=== PATIENT | male | born 1935 | race Caucasian/White ===

== ENCOUNTER → 2021-07-28 15:00 | Outpatient (CLI) | payer MEDICARE, OTHER, SELFPAY ==
--- NOTE | 2021-07-28 | DI.CT_ITS ---
Exam(s) CT HEAD WO EXAM: CT HEAD WO CLINICAL HISTORY: HX OF CLOSED HEAD INJURY, Z87.820, ACUTE CONFUSION, R41.0. TECHNIQUE: Imaging Protocol: Axial computed tomography images with coronal and sagittal reformatted images were created and reviewed COMPARISON: No exams were available for comparison FINDINGS: Ventricles and Extra axial spaces: Moderate atrophy with compensatory ventricular dilatation. Hemorrhage: None. Cerebral parenchyma: White matter hypodensities consistent with small vessel changes. Midline shift: None. Brainstem/Cerebellum: Normal. Calvarium: Normal. Visualized Paranasal sinuses/Mastoids: Clear. Soft Tissues: Unremarkable. IMPRESSION: Age related changes. No acute intracranial process. RADIATION DOSE DELIVERED: 855.96mGy.cm Total DLP DATA REPOSITORY: All CT scans at this facility are submitted to the National Radiology Data Registry (NRDR) Dose Index Registry (DIR) with the [employer] (ACR). RADIATION OPTIMIZATION: All CT scans at this facility use at least one of these dose optimization te chniques: automated exposure control; mA and/or kV adjustment per patient size (includes targeted exa ms where dose is matched to clinical indication); or iterative reconstruction.
== END ==
PROVIDERS: Visit Provider Family Medicine
DX: R41.0 Disorientation, unspecified (principal); Z87.820 Personal history of traumatic brain injury
CPT/HCPCS: 70450

== ENCOUNTER 2021-07-28 21:07 | Outpatient (REF) | payer MEDICARE, OTHER, SELFPAY ==
[2021-07-28 20:15] LABS: Abs Immature Grans 0.05 10^3/uL (0.0-0.06); Absolute Basophil Count 0.03 10^3/uL (0.0-0.2); Absolute Eosinophil Count 0.16 10^3/uL (0.0-0.7); Absolute Lymphocyte Count 1.83 10^3/uL (1.2-3.4); Absolute Monocyte Count 0.59 10^3/uL (0.1-0.8); Absolute Neutrophil Count 4.61 10^3/uL (1.2-6.7); Basophils % 0.4; Eosinophils % 2.2; HCT 42.5 % (40.0-50.0); HGB 13.8 g/dL (13.5-17.5); Immature Grans % 0.7; Lymphocytes % 25.2; MCH 29.5 pg (27.0-33.0); MCHC 32.5 % (32.0-36.0); MCV 91 fL (80-95); Monocytes % 8.1; Neutrophils % 63.4; Platelet Count 146 10^3/uL (130-400); RBC 4.68 10^6/uL (4.36-5.78); RDW 14.7 % (11.8-14.1); RDW-SD 49.7 fL; WBC 7.27 10^3/uL (4.4-10.8)
[2021-07-28 20:45] LABS: ALT 30 U/L (16-63); AST 25 U/L (15-37); Albumin 3.7 g/dL (3.4-5.0); Alkaline Phosphatase 77 U/L (46-116); BUN 16 mg/dL (7-18); Bilirubin, Total 0.8 mg/dL (0.2-1.0); CREATININE 1.1 mg/dL (0.70-1.30); Calcium 8.8 mg/dL (8.5-10.1); Chloride 102 mmol/L (98-107); Glucose 105 mg/dL (74-106); Potassium 4.4 mmol/L (3.5-5.1); Sodium 137 mmol/L (136-145)
[2021-07-28 21:02] LABS: FREE T4 0.98 ng/dL (0.76-1.46)
== END 2021-07-28 21:08 | disposition home or self-care (01) ==
LOC: LBN 21:07
PROVIDERS: Visit Provider Family Medicine
DX: R41.0 Disorientation, unspecified (principal); Z87.820 Personal history of traumatic brain injury
CPT/HCPCS: 80053; 84439; 84443; 85025

== ENCOUNTER 2021-09-14 11:10 | Observation (INO) | payer MEDICARE, OTHER, SELFPAY ==
[2021-09-14] VITALS (72 sets, daily range): BP systolic 118–182; BP diastolic 54–137; PULSE 59–98; RESP 11–29; TEMP 36.6–38.3; O2SAT 93–99
--- NOTE | 2021-09-14 12:00 | DI.CT_ITS ---
Exam(s) CT HEAD WO EXAM: CT HEAD WO CLINICAL HISTORY: AMS. TECHNIQUE: Imaging Protocol: Axial computed tomography images with coronal and sagittal reformatted images were created and reviewed COMPARISON: CT CT HEAD WO from 07/28/2021 FINDINGS: There are no skull fractures. There is mucosal thickening in the bilateral maxillary sinuses now ev ident but not associated with fluid levels therein. Sphenoid sinuses and frontal sinuses are clear a s are the ethmoidal air cells and mastoid air cells. No fluid in the middle ear cavities. There is no evidence of intracranial hemorrhage, mass effect, or shift of midline structures. There are no extra-axial fluid collections. Lateral and 3rd ventricles are slightly prominent, perhaps sli ghtly out of proportion compared to the cortical sulci but unchanged from previous. There is mild bi lateral periventricular hypodensity consistent with chronic small vessel disease. No new territorial infarction evident. IMPRESSION: No acute intracranial findings on this noninfused CT scan of the brain. No significant change compared to 07/28/2021. Atrophy noted although the size of the lateral ventric les may be slightly out of proportion when compared to the size of the overlying cortical sulci. The refore, if there is clinical triad of dementia, ataxia, and incontinence than the possibility of norm al pressure hydrocephalus might be entertained. RADIATION DOSE DELIVERED: 888.46mGy.cm Total DLP DATA REPOSITORY: All CT scans at this facility are submitted to the National Radiology Data Registry (NRDR) Dose Index Registry (DIR) with the [employer] (ACR). RADIATION OPTIMIZATION: All CT scans at this facility use at least one of these dose optimization te chniques: automated exposure control; mA and/or kV adjustment per patient size (includes targeted exa ms where dose is matched to clinical indication); or iterative reconstruction.
--- NOTE | 2021-09-14 12:00 | DI.RAD_ITS ---
Exam(s) XR CHEST 2V PA LATERAL EXAM: XR CHEST 2V PA LATERAL CLINICAL HISTORY: fall/ams. TECHNIQUE: 2D digital imaging was performed. COMPARISON: No exams were available for comparison FINDINGS: 2 views: Heart size is normal. The mediastinum is not widened. Lungs are clear. No infiltrates nor pleural effusions. IMPRESSION: No acute pulmonary findings. DATA REPOSITORY: RADIATION DOSE DELIVERED:
--- NOTE | 2021-09-14 12:00 | RT.EKG_ITS ---
APPROVED REPORT Exam: Resting ECG Reason for Exam: ams Patient Location: E HR:68 bpm ECG Measurements Heart Rate 68 AXIS OK [id number] P [id number] QRSd 138 QRS -82 QT 491 T 67 QTc 522 Conclusion Junctional rhythm...absent P waves, slow V-rate Right bundle branch block...QRSd>120, terminal axis(90,270) Inferior infarct, old...Q >35mS, II III aVF no STEMI I have reviewed and interpreted ECG and agree with software generated interpretation.
[2021-09-14 12:15] LABS: Abs Immature Grans 0.05 10^3/uL (0.0-0.06); Absolute Basophil Count 0.03 10^3/uL (0.0-0.2); Absolute Eosinophil Count 0.18 10^3/uL (0.0-0.7); Absolute Lymphocyte Count 0.46 10^3/uL (1.2-3.4); Absolute Monocyte Count 0.73 10^3/uL (0.1-0.8); Absolute Neutrophil Count 5.66 10^3/uL (1.2-6.7); Basophils % 0.4; Eosinophils % 2.5; HCT 41.4 % (40.0-50.0); HGB 13.6 g/dL (13.5-17.5); Immature Grans % 0.7; Lymphocytes % 6.5; MCHC 32.9 % (32.0-36.0); MCV 91 fL (80-95); MPV 12.3 fL (8.0-11.0); Monocytes % 10.3; Neutrophils % 79.6; Platelet Count 105 10^3/uL (130-400); RBC 4.53 10^6/uL (4.36-5.78); RDW 15.1 % (11.8-14.1); RDW-SD 50.9 fL; WBC 7.11 10^3/uL (4.4-10.8)
[2021-09-14 12:23] LABS: Prothrombin Time 11.5 sec (9.3-11.0)
[2021-09-14 12:27] LABS: INR 1.1 (0.9-1.1)
[2021-09-14 12:39] LABS: ALT 125 U/L (16-63); AST 129 U/L (15-37); Albumin 3.6 g/dL (3.4-5.0); Alkaline Phosphatase 90 U/L (46-116); Anion Gap 6.5 mmol/L (3-11); BUN 24 mg/dL (7-18); Bilirubin, Total 1.3 mg/dL (0.2-1.0); CO2 28.5 mmol/L (21.0-32.0); CREATININE 1.2 mg/dL (0.70-1.30); Chloride 105 mmol/L (98-107); Creatine Kinase 632 U/L (39-308); Estimated GFR 57.54 (mL/min/1.73m2); Glucose 89 mg/dL (74-106); Sodium 140 mmol/L (136-145); TSH (W/Ref FT4) 2.56 uIU/mL (0.36-3.74); Total Protein 7.2 g/dL (6.4-8.2)
[2021-09-14 12:40] LABS: ETHANOL BLOOD < 3.0 mg/dL (<10)
[2021-09-14 12:42] LABS: Troponin I 120 ng/L (<or=60)
--- NOTE | 2021-09-14 13:29 | ED.GENADUL_ITS ---
Discharge Plan Disposition Patient Disposition: [facility] INPATIENT Condition: Stable Discharge Details Clinical Impression: Elevated troponin, Elevated CPK, COVID Admit Date/Time: 09/14/21 17:59 Admit Provider: Jean Pierre German Attending Provider: Jean Pierre German Primary Care Provider: Unknown,Unknown ED Provider: Janneth Solano Discharge Data Discharge Date/Time-TO BE ENTERED AT DEPARTURE: 09/14/21 20:26 Medical Decision Making <IVONNE Lezama - Last Filed: 09/14/21 15:59> This is an 86-year-old gentleman who is cared by his 2 Neighbors Jose and Janet, Janet being his POA, does not regular medical attention and is not on any medications presenting to the ER for unwitnessed fall last night, found on the ground this morning. Daya also reports that he likely has undiagnosed dementia, his overall mental status has been deteriorating for nearly a year but has decreased more rapidly as of late. They are in the process of moving him from his off the grid housing situation to an apartment in [place] and in the meantime while the apartment is being cleaned he is staying at a cottage on [facility]. Clinically he is pleasantly demented, no acute concerns or complaints, grossly neurologically intact. Differential is broad and includes intracranial process, infectious process, electrolyte abnormality, rhabdomyolysis, cardiac etiology, etc. Plan is to obtain IV access, give IV fluid, initiate cardiac work-up as well as a head CT Laboratory values reveal no evidence of leukocytosis, anemia, his platelet count is slightly low at 105. INR is 1.1, electrolytes unremarkable GFR of 57.54 with a creatinine of 1.2. Total bili was 1.3, abdomen is soft, nontender, no nausea or vomiting. CPK 632 troponin 120, TSH 256 Will provide full dose aspirin.. Head CT and chest x-ray unremarkable. Plan to discuss the case with our hospitalist team for admission. Case discussed with Dr. German who would like to review the case, recommends PT consultation in the meantime. COVID-positive. Patient has no respiratory symptoms, O2 sat 98% on room air. Delta troponin is now 130. I was contacted by PT who states they cannot evaluate the patient for quite some time but will when they are able. In the setting of a unwitnessed fall, elevated CPK, rising troponin, COVID positives, I believe the patient needs admission regardless of the PT consultation and have once again requested to speak with the hospitalist team. This documentation was generated using [employer] ([employer]) dictation system, please disregard any oddities of phrase or misspellings. Imaging Data Radiologic Study: Attestation: I personally reviewed and interpreted this imaging study as follows: Imaging: X-Ray Radiologist's impression: Exam(s) XR CHEST 2V PA LATERAL EXAM: XR CHEST 2V PA LATERAL CLINICAL HISTORY: fall/ams. TECHNIQUE: 2D digital imaging was performed. COMPARISON: No exams were available for comparison FINDINGS: 2 views: Heart size is normal. The mediastinum is not widened. Lungs are clear. No infiltrates nor pleural effusions. IMPRESSION: No acute pulmonary findings. Radiologic Study #2: Attestation: I personally reviewed and interpreted this imaging study as follows: Imaging: CT Scan Radiologist's impression: Exam(s) CT HEAD WO EXAM: CT HEAD WO CLINICAL HISTORY: AMS. TECHNIQUE: Imaging Protocol: Axial computed tomography images with coronal and sagittal reformatted images were created and reviewed COMPARISON: CT CT HEAD WO from 07/28/2021 FINDINGS: There are no skull fractures. There is mucosal thickening in the bilateral maxillary sinuses now evident but not associated with fluid levels therein. Sphenoid sinuses and frontal sinuses are clear as are the ethmoidal air cells and mastoid air cells. No fluid in the middle ear cavities. There is no evidence of intracranial hemorrhage, mass effect, or shift of midline structures. There are no extra-axial fluid collections. Lateral and 3rd ventricles are slightly prominent, perhaps slightly out of proportion compared to the cortical sulci but unchanged from previous. There is mild bilateral periventricular hypodensity consistent with chronic small vessel disease. No new territorial infarction evident. IMPRESSION: No acute intracranial findings on this noninfused CT scan of the brain. Lab Data Lab results reviewed: Yes I reviewed the patient's lab results. Labs: Laboratory Tests Range/Units 09/14/21 09/14/21 09/14/21 10:52 10:52 10:52 WBC (4.4-10.8) 10^3/uL 7.11 RBC (4.36-5.78) 10^6/uL 4.53 Hgb (13.5-17.5) g/dL 13.6 Hct (40.0-50.0) % 41.4 MCV (80-95) fL 91 MCH (27.0-33.0) pg 30.0 MCHC (32.0-36.0) % 32.9 RDW (11.8-14.1) % 15.1 H Plt Count (130-400) 10^3/uL 105 L MPV (8.0-11.0) fL 12.3 H Immature Gran % 0.7 Neutrophils % 79.6 Lymphocytes % 6.5 Monocytes % 10.3 Eosinophils % 2.5 Basophils % 0.4 Nucleated RBC % (0.0-0.3) % 0.0 Absolute Neutrophils (1.2-6.7) 10^3/uL 5.66 Absolute Lymphocytes (1.2-3.4) 10^3/uL 0.46 L Absolute Monocytes (0.1-0.8) 10^3/uL 0.73 Absolute Eosinophils (0.0-0.7) 10^3/uL 0.18 Absolute Basophils (0.0-0.2) 10^3/uL 0.03 PT (9.3-11.0) sec 11.5 H INR (0.9-1.1) 1.1 Sodium (136-145) mmol/L 140 Potassium (3.5-5.1) mmol/L 4.0 Chloride (98-107) mmol/L 105 Carbon Dioxide (21.0-32.0) mmol/L 28.5 Anion Gap (3-11) mmol/L 6.5 BUN (7-18) mg/dL 24 H Creatinine (0.70-1.30) mg/dL 1.2 Estimated GFR/1.73 m2 (mL/min/1.73m2) 57.54 Glucose (74-106) mg/dL 89 Calcium (8.5-10.1) mg/dL 9.0 Magnesium (1.8-2.4) mg/dL 2.0 Total Bilirubin (0.2-1.0) mg/dL 1.3 H AST (15-37) U/L 129 H ALT (16-63) U/L 125 H Alkaline Phosphatase (46-116) U/L 90 Creatine Kinase (39-308) U/L 632 H Troponin I (<or=60) ng/L 120 H* Total Protein (6.4-8.2) g/dL 7.2 Albumin (3.4-5.0) g/dL 3.6 TSH (0.36-3.74) uIU/mL 2.56 Urine Color (Yellow) Urine Clarity (Clear) Urine pH (5-8) Ur Specific [place] (1.005-1.025) Urine Protein (Negative) mg/dL Urine Ketones (Negative) mg/dL Urine Blood (Negative) Urine Nitrite (Negative) Urine Bilirubin (Negative) Urine Urobilinogen (Up TO 0.2) EU/dL Ur Leukocyte Esterase (Negative) Urine RBC (0-2) HPF Urine WBC (0-5) HPF Ur Epithelial Cells (Negative) HPF Urine Crystals (Negative) HPF Urine Bacteria (Negative) HPF Urine Casts (Negative) LPF Urine Mucus (Negative) Ur Culture Indicated? Urine Glucose (Negative) mg/dL Ethyl Alcohol (<10) mg/dL < 3.0 COVID-19 Source SARS-CoV-2 (PCR) (Negative) Range/Units 09/14/21 09/14/21 09/14/21 14:13 14:24 15:00 WBC (4.4-10.8) 10^3/uL RBC (4.36-5.78) 10^6/uL Hgb (13.5-17.5) g/dL Hct (40.0-50.0) % MCV (80-95) fL MCH (27.0-33.0) pg MCHC (32.0-36.0) % RDW (11.8-14.1) % Plt Count (130-400) 10^3/uL MPV (8.0-11.0) fL Immature Gran % Neutrophils % Lymphocytes % Monocytes % Eosinophils % Basophils % Nucleated RBC % (0.0-0.3) % Absolute Neutrophils (1.2-6.7) 10^3/uL Absolute Lymphocytes (1.2-3.4) 10^3/uL Absolute Monocytes (0.1-0.8) 10^3/uL Absolute Eosinophils (0.0-0.7) 10^3/uL Absolute Basophils (0.0-0.2) 10^3/uL PT (9.3-11.0) sec INR (0.9-1.1) Sodium (136-145) mmol/L Potassium (3.5-5.1) mmol/L Chloride (98-107) mmol/L Carbon Dioxide (21.0-32.0) mmol/L Anion Gap (3-11) mmol/L BUN (7-18) mg/dL Creatinine (0.70-1.30) mg/dL Estimated GFR/1.73 m2 (mL/min/1.73m2) Glucose (74-106) mg/dL Calcium (8.5-10.1) mg/dL Magnesium (1.8-2.4) mg/dL Total Bilirubin (0.2-1.0) mg/dL AST (15-37) U/L ALT (16-63) U/L Alkaline Phosphatase (46-116) U/L Creatine Kinase (39-308) U/L Troponin I (<or=60) ng/L 130 H* Total Protein (6.4-8.2) g/dL Albumin (3.4-5.0) g/dL TSH (0.36-3.74) uIU/mL Urine Color (Yellow) Yellow Urine Clarity (Clear) Clear Urine pH (5-8) 6.0 Ur Specific [place] (1.005-1.025) >= 1.030 H Urine Protein (Negative) mg/dL 30 H Urine Ketones (Negative) mg/dL Trace H Urine Blood (Negative) Small H Urine Nitrite (Negative) Negative Urine Bilirubin (Negative) Negative Urine Urobilinogen (Up TO 0.2) EU/dL 1.0 H Ur Leukocyte Esterase (Negative) Negative Urine RBC (0-2) HPF 3-5 H Urine WBC (0-5) HPF Negative Ur Epithelial Cells (Negative) HPF Rare Urine Crystals (Negative) HPF Negative Urine Bacteria (Negative) HPF Negative Urine Casts (Negative) LPF 0-2 Hyaline Urine Mucus (Negative) Trace Ur Culture Indicated? No Urine Glucose (Negative) mg/dL Negative Ethyl Alcohol (<10) mg/dL COVID-19 Source Nasal/Nares SARS-CoV-2 (PCR) (Negative) POSITIVE A* ECG Data Attestation: I personally reviewed and interpreted this ECG (s) as follows: Interpretation: Junctional rhythm, ventricular rate of 68, no STEMI. <Janneth Solano NP - Last Filed: 09/14/21 23:08> This is an 86-year-old gentleman who is cared by his 2 Neighbors Jose and Janet, Janet being his POA, does not regular medical attention and is not on any medications presenting to the ER for unwitnessed fall last night, found on the ground this morning. Daya also reports that he likely has undiagnosed dementia, his overall mental status has been deteriorating for nearly a year but has decreased more rapidly as of late. They are in the process of moving him from his off the grid housing situation to an apartment in [place] and in the meantime while the apartment is being cleaned he is staying at a cottage on [facility]. Clinically he is pleasantly demented, no acute concerns or complaints, grossly neurologically intact. Differential is broad and includes intracranial process, infectious process, electrolyte abnormality, rhabdomyolysis, cardiac etiology, etc. Plan is to obtain IV access, give IV fluid, initiate cardiac work-up as well as a head CT Laboratory values reveal no evidence of leukocytosis, anemia, his platelet count is slightly low at 105. INR is 1.1, electrolytes unremarkable GFR of 57.54 with a creatinine of 1.2. Total bili was 1.3, abdomen is soft, nontender, no nausea or vomiting. CPK 632 troponin 120, TSH 256 Will provide full dose aspirin.. Head CT and chest x-ray unremarkable. Plan to discuss the case with our hospitalist team for admission. Case discussed with Dr. German who would like to review the case, recommends PT consultation in the meantime. COVID-positive. Patient has no respiratory symptoms, O2 sat 98% on room air. Delta troponin is now 130. I was contacted by PT who states they cannot evaluate the patient for quite some time but will when they are able. In the setting of a unwitnessed fall, elevated CPK, rising., COVID positives, I believe the patient needs admission regardless of the PT consultation and have once again requested to speak with the hospitalist team. This documentation was generated using InsideMaps[employer] system, please disregard any oddities of phrase or misspellings. 1605: SJ: Care assumed from provider (see PA) Please see their initial HPI, PE, and documentation. Discussed patient details and case and pending workup and disposition. Patient is hemodynamically stable. At the time of signout pending possible admission for COVID-positive, and elevated troponin. Spoke once again with Dr. Monique regarding positive COVID test and increasing troponin results. He will reach physical therapy evaluation. He is also requesting care management to be involved. 1613: Spoke with Alley with healthcare specialist she will see what patient qualifies for in ways of home health if possible. 1617: Spoke with Hospitalist team again, they agree to accept patient for admission for Observation. 1718: PT with Moises Casas here for. Apparently there is some confusion whether patient has been accepted for admission per Alley with care management patient has not been accepted for admission. Hospitalist paged by myself. [id number]: PT statesthat patient is not safe to be discharged ,unable to perform activities daily living. He is unable to get in and out of bed by himself. 1747: Spoke with Hospitalist once more who does agree again to keep patient for admission. staff readiness officer spoke with person who brought him in, Janet Grayson who is his DPOA. There is also a report of bed bug infestation at the place of his residence. HPI <IVONNE Lezama - Last Filed: 09/14/21 15:59> General Mode of arrival: ambulatory . Date/Time Provider Initiated Documentation: 09/14/21 11:49 . Limitations to Documentation: no limitations . Information obtained by: patient . HPI Narrative: This is an 86-year-old gentleman who presents with Daya a herb doctor with permission from Janet his POA, does not seek regular medical attention, presenting to the ER today for a fall that occurred sometime last night, found on the ground this morning unable to get up on his own, and acute on chronic unofficially diagnosed dementia. Patient currently has no acute concerns or complaints, tells me he feels well. He appears pleasantly demented. Daya tells me that she and Janet are in the process of moving him from his office group housing to an apartment in [facility] but that apartment is currently being cleaned for temporarily he is staying in the [facility] [address]. Daya saw him last night and [place] [facility] [place] he was unable to come to the door, the door was unlocked by the telegraph office manager and he was found on the ground, unknown how long she was on the ground for. He does not recall falling and denies any injury. Patient has a sibling Daya believes in [place], his is in a memory facility in [facility] for [place] but both Janet and Daya care for him locally. I was able to speak with Janet and she confirms the patient is a DNR, DNI Related Data Home Medications Medication Instructions Recorded Confirmed Unknown [No Known Home Meds] 09/14/21 09/14/21 Allergies Allergy/AdvReac Type Severity Reaction Status Date / Time No Known Allergies Allergy Unverified 09/14/21 17:42 General Stated Complaint: AMS/LOC JENNIFER: 2 Review of Systems <IVONNE Lezama - Last Filed: 09/14/21 15:59> Narrative: Limited secondary to dementia Constitutional Constitutional: Denies fever(s) and Denies headache(s) Eyes Eyes: Denies change in vision ENT Ears, Nose, Mouth, and Throat: Denies headache(s) and Denies neck pain Cardiovascular Cardiovascular: Denies chest pain and Denies dyspnea Respiratory Respiratory: Denies cough and Denies dyspnea Gastrointestinal Gastrointestinal: Denies abdominal pain, Denies nausea and Denies vomiting Musculoskeletal Musculoskeletal: Denies neck pain Integumentary/Breasts Skin/Breast: Denies rash Neurologic Neurologic: Denies headache(s) Hematologic/Lymphatic Hematologic/Lymphatic: Denies easy bleeding and Denies easy bruising PFSH <IVONNE Lezama - Last Filed: 09/14/21 15:59> All Active Problems (Updated 09/14/21 @ 15:57 by IVONNE Lezama) Elevated troponin (Acute) Elevated CPK (Acute) COVID (Acute) Social History Smoking/Tobacco Use Status: Never Smoking risk assessment performed?: Yes Alcohol Intake: current Alcohol Intake frequency: 0-2 drinks per day Alcohol type: hard liquor Substance use type: does not use Details: Pt reports he drinks 1 glass of Gin a day Do you feel safe at home: Yes Do you feel safe in your relationship?: Yes Exam <IVONNE Lezama - Last Filed: 09/14/21 15:59> Const General: cooperative, healthy appearing, comfortable and no acute distress Orientation: alert, awake, oriented to person and oriented to place [facility] Head: normal to inspection, normocephalic and atraumatic Face and sinus: normal facial exam Mouth: moist mucous membranes Eyes General: appearance normal, both eyes and all related structures Conjunctivae: conjunctivae normal Neck Neck: normal visual inspection, full ROM, trachea midline, supple and nontender Resp Effort & Inspection: normal respiratory effort and able to speak in complete sentences Auscultation: clear to auscultation bilaterally Cardio Rate: regular rate Rhythm: regular rhythm GI Palpation: soft, not firm, no guarding, no pulsatile masses and nontender Auscultation: normal bowel sounds Back/Spine/Pelvis Back: No back tenderness Skin General skin exam: no rashes or lesions noted Neuro General: patient alert, patient awake, moves all extremities and no focal motor deficits Cognition: normal cognition Speech: speech normal Motor: muscle tone normal throughout Sensory Exam: no sensory deficits noted Extrem General: normal to inspection, full ROM, capillary refill normal, no pedal edema and no calf tenderness Psych Appearance: grossly normal Mental Status: mental status grossly normal Course <IVONNE Lezama - Last Filed: 09/14/21 15:59> Vital Signs Vital signs: Vital Signs Temperature 36.6 C 09/14/21 11:35 Pulse 70 09/14/21 11:35 Respiratory Rate 23 09/14/21 11:35 Blood Pressure 164/86 H 09/14/21 11:35 Pulse Oximetry 99 09/14/21 11:35 Temperature 36.6 C 09/14/21 11:35 Temperature Source Temporal Artery Scan 09/14/21 11:35 Pulse 69 09/14/21 12:46 Pulse 71 09/14/21 12:46 Respiratory Rate 22 09/14/21 12:46 Respiratory Effort Non-Labored 09/14/21 11:57 Respiratory Depth Normal 09/14/21 11:57 Respiratory Pattern Normal 09/14/21 11:57 Blood Pressure 153/92 H 09/14/21 12:46 Blood Pressure Mean 107 09/14/21 12:46 Blood Pressure Position Sitting 09/14/21 11:35 Pulse Oximetry 97 09/14/21 12:46 Oxygen Delivery Method Room Air 09/14/21 11:35 Oxygen Flow Rate 0 09/14/21 11:35 Pain Level 0 09/14/21 11:35 Lab/Test Results Lab/Test Results: Laboratory Tests Range/Units 09/14/21 09/14/21 09/14/21 10:52 10:52 10:52 WBC (4.4-10.8) 10^3/uL 7.11 RBC (4.36-5.78) 10^6/uL 4.53 Hgb (13.5-17.5) g/dL 13.6 Hct (40.0-50.0) % 41.4 MCV (80-95) fL 91 MCH (27.0-33.0) pg 30.0 MCHC (32.0-36.0) % 32.9 RDW (11.8-14.1) % 15.1 H Plt Count (130-400) 10^3/uL 105 L MPV (8.0-11.0) fL 12.3 H Immature Gran % 0.7 Neutrophils % 79.6 Lymphocytes % 6.5 Monocytes % 10.3 Eosinophils % 2.5 Basophils % 0.4 Nucleated RBC % (0.0-0.3) % 0.0 Absolute Neutrophils (1.2-6.7) 10^3/uL 5.66 Absolute Lymphocytes (1.2-3.4) 10^3/uL 0.46 L Absolute Monocytes (0.1-0.8) 10^3/uL 0.73 Absolute Eosinophils (0.0-0.7) 10^3/uL 0.18 Absolute Basophils (0.0-0.2) 10^3/uL 0.03 PT (9.3-11.0) sec 11.5 H INR (0.9-1.1) 1.1 Sodium (136-145) mmol/L 140 Potassium (3.5-5.1) mmol/L 4.0 Chloride (98-107) mmol/L 105 Carbon Dioxide (21.0-32.0) mmol/L 28.5 Anion Gap (3-11) mmol/L 6.5 BUN (7-18) mg/dL 24 H Creatinine (0.70-1.30) mg/dL 1.2 Estimated GFR/1.73 m2 (mL/min/1.73m2) 57.54 Glucose (74-106) mg/dL 89 Calcium (8.5-10.1) mg/dL 9.0 Magnesium (1.8-2.4) mg/dL 2.0 Total Bilirubin (0.2-1.0) mg/dL 1.3 H AST (15-37) U/L 129 H ALT (16-63) U/L 125 H Alkaline Phosphatase (46-116) U/L 90 Creatine Kinase (39-308) U/L 632 H Troponin I (<or=60) ng/L 120 H* Total Protein (6.4-8.2) g/dL 7.2 Albumin (3.4-5.0) g/dL 3.6 TSH (0.36-3.74) uIU/mL 2.56 Ethyl Alcohol (<10) mg/dL < 3.0 Sign Out <IVONNE Lezama - Last Filed: 09/14/21 15:59> Sign Out Data: Sign Out Comment: Pending admission for unwitnessed fall, unable to get up off of the ground, elevated CPK, elevated troponin, COVID-positive. Also awaiting PT consultation I did confirm with the patient's POA that he is in fact a DNR, DNI Last updated by Cedrick Díaz PA at 09/14/21 15:58 PAWSS <IVONNE Lezama - Last Filed: 09/14/21 15:59> Have you Been Recently Intoxicated or Drunk Within the Last 30 days?: No Have you Ever Experienced Previous Episodes of Alcohol Withdrawal?: No Have you ever Experienced Withdrawal Seizures?: No Have you ever Experienced Delirium Tremens(DT)s?: No Have you ever undergone Alcohol Rehabilitation Treatment (i.e, inpt ot outpatient treatment programs)?: No Have you ever Experienced Blackouts?: No Have you ever Combined Alcohol with other Downers within the last 90 days?: No Have you ever Combined Alcohol with any other Substance of Abuse during the last 90 days?: No Positive Blood Alcohol level on Presentation? [PCS.BAL]: No Evidence of Increased Autonomic Activity (i.e. HR>120, tremor, sweating, agitation, nausea)?: No Result: 0 <Janneth Solano NP - Last Filed: 09/14/21 23:08> Result: 0
[2021-09-14 14:28] LABS: Source Nasal/Nares
[2021-09-14] MEDS: Normal Saline 1,000 ML 1000 ML IV (14:34)
[2021-09-14 14:41] LABS: Bilirubin Negative (Negative); Blood Small (Negative); Clarity Clear (Clear); Glucose Negative (Negative); Ketones Trace mg/dL (Negative); Leukocyte Esterase Negative (Negative); Nitrite Negative (Negative); Specific Gravity >= 1.030 (1.005-1.025)
[2021-09-14 14:49] LABS: Bacteria Negative HPF (Negative); C & S Indicated? No; Casts 0-2 Hyaline LPF (Negative); Crystals Negative HPF (Negative); Epithelial Cells Rare HPF (Negative); Mucus Trace (Negative); WBC Negative HPF (0-5)
[2021-09-14 15:20] LABS: COVID-19 PCR POSITIVE (Negative)
[2021-09-14 15:25] LABS: Troponin I 130 ng/L (<or=60)
--- NOTE | 2021-09-14 17:55 | PT.INTREAT ---
PT Notes Visit Reasons: [facility] Emergency room physical Therapy Evaluation Date: 09/14/2021 Referring Doctor: Cedrick Díaz PT Orders: PT CONSULT: Determine functional status Precautions: Fall risk Patient Profile/Admitting Diagnosis: 86-year-old male who was admitted to the ER today after being found on the ground by neighbors. PMHX: Dementia Social History/Home Situation: Currently living alone in a cottage on [address] [facility] and waiting to occupy an apartment in [place]. Couple of neighbors assist him with his home situation. Current Functional Limitations: Requires assistance with bed mobility activities and standby supervision with ambulation Equipment Owned/DME: Difficult to assess due to patient being a poor historian. Subjective: No complaints of pain offered Objective: General Observation: I enter the examination room and the patient is floundering on the plinth. Mental Status: He is disoriented to person, place and time ([place], and unsure of the year, thinks he is in [place], and Gauri is president) he follows simple commands appropriately Pain: No complaints of pain ROM: Has functional range of motion of his articular structures without pain on movement Strength: Is full motor control throughout strength generally rated 4/5 Neuro: Intact Bed Mobility/Transfers: Requires moderate to maximal assist with assuming the supine to sitting position, and mild to moderate assistance with assuming sitting to supine. He is able to stand with minimal contact assistance. Gait: He ambulated with an FW W with contact guarding but a stable gait. He would frequently lift and carry the walker. His unilateral standing balance was less than 3 seconds and he complained of fear of falling Balance: Static Sitting: Stable Dynamic Sitting: Requires standby supervision Static Standing: Stable but required standby supervision Dynamic Standing: Fair with unilateral standing balance of less than 3 seconds Special Tests: Informed Consent/Education: Patient instructed in purpose of PT consult and plan of care. Assessment: Patient is a 86year old male referred to physical therapy services with the diagnosis of recent fall and dementia. Patient presents with clinical signs and symptoms consistent with diagnosis, as demonstrated by the following impairment level findings: . Disoriented x3 requiring assistance with all bed mobility activities, and supervision with ambulation requiring a walker to minimize fall risk. Is unsafe for him to return to his current living situation unsupervised Patient is assessed as a Moderate [id number] complexity based on the following: History: See comorbidities and social history Examination: See above for functional limitations impairments Presentation: Evolving Decision Making: Moderate complexity based on his clinical findings Goals: Plan of Care/Treatment Plan: Due to his functional status and dementia/disorientation, along with living alone, patient needs to be in a supervised, safer environment. DISCHARGE RECOMMENDATIONS: SNF for continued rehabilitation TREATMENT CODE/TIME: 06343 Disclaimer: This note was created using [employer], [employer] voice recognition software. It was reviewed for major content. However, there may be multiple small discrepancies and errors due to the voice recognition aspects of the software.
[2021-09-14] MEDS: Aspirin 325 MG TAB PO (18:10)
--- NOTE | 2021-09-14 18:25 | W.PM.HP.N ---
Date of service: 09/14/21 Time of Service: 18:25 Assessment and Plan Assessment and plan (1) COVID: Status: Acute Assessment and plan: Incidental finding w/o respiratory symptoms. Likely a cause of weakness. Precautions. (2) Elevated CPK: Status: Acute Assessment and plan: Found on ground; unknown amount of time, though caregiver saw him the evening before admission and he was in his normal state of health. Repeat and insure adequate hydration. (3) Elevated troponin: Status: Acute Assessment and plan: Mild elevation. No EKG concerns. Trend (4) Discharge planning issues: Status: Acute Assessment and plan: Care management to d/w DPOA and caregiver regarding disposition. History of Present Illness History of Present Illness Chief Complaint: Weakness Narrative: This is an 86 yo male with no known PMH; does not routinely seek medical care. He came to the ED after a caregiver that checks in on him found him on the ground after he did not answer the door. He lives alone in a cottage on [address] [facility]; the surplus property disposal agent let the caregiver, Daya in. He could not recall why he was on the ground but denied any pain or injury. He has dementia and is not a good historian. He has a DNR/DNI code status. W/U in the ED found him to be Covid positive. He was not hypoxic or showing any signs of respiratory compromise. WBC count normal. Afebrile. Troponin 120 > 130. No EKG findings concerning for ACS. No C/O chest pain. CPK 632. CXR w/o acute findings. CT head w/o acute findings. He was given a 1L NS bolus. PT attempted to walk him but was unable to get him up off the gurney. Review of Systems Unobtainable due to mental status PFSH All Active Problems (Updated 09/15/21 @ 09:55 by Jean Pierre German MD) Discharge planning issues (Acute) Elevated troponin (Acute) Elevated CPK (Acute) COVID (Acute) Social History Smoking/Tobacco Use Status: Never Smoking risk assessment performed?: Yes Alcohol Intake: current Alcohol Intake frequency: 0-2 drinks per day Alcohol type: hard liquor Substance use type: does not use Details: Pt reports he drinks 1 glass of Gin a day Do you feel safe at home: Yes Do you feel safe in your relationship?: Yes Meds Allergies and Home Medications Allergies Allergy/AdvReac Type Severity Reaction Status Date / Time No Known Allergies Allergy Unverified 09/14/21 17:42 Home Medications Medication Instructions Recorded Confirmed Type Unknown [No Known Home Meds] 09/14/21 09/14/21 History Exam Narrative Exam Narrative: Lying supine. on gurney. Const General: cooperative, no acute distress and frail appearing Nutritional Appearance: thin Orientation: awake Eyes General: appearance normal, both eyes and all related structures Sclera: sclerae normal Resp Effort & Inspection: normal respiratory effort Auscultation: clear to auscultation bilaterally Cardio Rate: regular rate Rhythm: regular rhythm Heart Sounds: S1 normal and S2 normal GI Inspection: normal to inspection Palpation: soft and nontender Skin General skin exam: other (scattered red, crusty lesions of scalp. ) Neuro General: no focal motor deficits Cranial Nerves: facial strength normal Extrem General: no pedal edema and no calf tenderness Psych Speech and Movement: speech clear Affect: normal affect Results Labs Result diagrams: 09/14/21 10:52 09/15/21 05:23 Labs: Laboratory Results - last 24 hr 09/14/21 09/14/21 09/14/21 10:52 10:52 10:52 WBC 7.11 RBC 4.53 Hgb 13.6 Hct 41.4 MCV 91 MCH 30.0 MCHC 32.9 RDW 15.1 H Plt Count 105 L MPV 12.3 H Immature Gran % 0.7 Neutrophils % 79.6 Lymphocytes % 6.5 Monocytes % 10.3 Eosinophils % 2.5 Basophils % 0.4 Nucleated RBC % 0.0 Absolute Neutrophils 5.66 Absolute Lymphocytes 0.46 L Absolute Monocytes 0.73 Absolute Eosinophils 0.18 Absolute Basophils 0.03 PT 11.5 H INR 1.1 Sodium 140 Potassium 4.0 Chloride 105 Carbon Dioxide 28.5 Anion Gap 6.5 BUN 24 H Creatinine 1.2 Estimated GFR/1.73 m2 57.54 Glucose 89 Calcium 9.0 Magnesium 2.0 Total Bilirubin 1.3 H AST 129 H ALT 125 H Alkaline Phosphatase 90 Creatine Kinase 632 H Troponin I 120 H* Total Protein 7.2 Albumin 3.6 TSH 2.56 Urine Color Urine Clarity Urine pH Ur Specific [place] Urine Protein Urine Ketones Urine Blood Urine Nitrite Urine Bilirubin Urine Urobilinogen Ur Leukocyte Esterase Urine RBC Urine WBC Ur Epithelial Cells Urine Crystals Urine Bacteria Urine Casts Urine Mucus Ur Culture Indicated? Urine Glucose Ethyl Alcohol < 3.0 COVID-19 Source SARS-CoV-2 (PCR) 09/14/21 09/14/21 09/14/21 14:13 14:24 15:00 WBC RBC Hgb Hct MCV MCH MCHC RDW Plt Count MPV Immature Gran % Neutrophils % Lymphocytes % Monocytes % Eosinophils % Basophils % Nucleated RBC % Absolute Neutrophils Absolute Lymphocytes Absolute Monocytes Absolute Eosinophils Absolute Basophils PT INR Sodium Potassium Chloride Carbon Dioxide Anion Gap BUN Creatinine Estimated GFR/1.73 m2 Glucose Calcium Magnesium Total Bilirubin AST ALT Alkaline Phosphatase Creatine Kinase Troponin I 130 H* Total Protein Albumin TSH Urine Color Yellow Urine Clarity Clear Urine pH 6.0 Ur Specific [place] >= 1.030 H Urine Protein 30 H Urine Ketones Trace H Urine Blood Small H Urine Nitrite Negative Urine Bilirubin Negative Urine Urobilinogen 1.0 H Ur Leukocyte Esterase Negative Urine RBC 3-5 H Urine WBC Negative Ur Epithelial Cells Rare Urine Crystals Negative Urine Bacteria Negative Urine Casts 0-2 Hyaline Urine Mucus Trace Ur Culture Indicated? No Urine Glucose Negative Ethyl Alcohol COVID-19 Source Nasal/Nares SARS-CoV-2 (PCR) POSITIVE A* Last Vital Signs Temp 36.6 C 09/14/21 11:35 Pulse 84 09/14/21 16:17 Resp 29 H 09/14/21 17:50 BP 132/111 H 09/14/21 16:17 Pulse Ox 98 09/14/21 15:10 PAWSS Have you Been Recently Intoxicated or Drunk Within the Last 30 days?: No Have you Ever Experienced Previous Episodes of Alcohol Withdrawal?: No Have you ever Experienced Withdrawal Seizures?: No Have you ever Experienced Delirium Tremens(DT)s?: No Have you ever undergone Alcohol Rehabilitation Treatment (i.e, inpt ot outpatient treatment programs)?: No Have you ever Experienced Blackouts?: No Have you ever Combined Alcohol with other Downers within the last 90 days?: No Have you ever Combined Alcohol with any other Substance of Abuse during the last 90 days?: No Positive Blood Alcohol level on Presentation? [PCS.BAL]: No Evidence of Increased Autonomic Activity (i.e. HR>120, tremor, sweating, agitation, nausea)?: No Result: 0
[2021-09-14] MEDS: Acetaminophen 325 MG TAB 650 MG PO (21:12)
[2021-09-14] MEDS: Enoxaparin 40 MG/0.4 ML SYR SC (21:12)
[2021-09-14 22:29] LABS: Troponin I 149 ng/L (<or=60)
[2021-09-15 06:22] LABS: ALT 179 U/L (16-63); AST 199 U/L (15-37); Albumin 3.2 g/dL (3.4-5.0); Alkaline Phosphatase 78 U/L (46-116); Anion Gap 7.2 mmol/L (3-11); BUN 23 mg/dL (7-18); Bilirubin, Total 1.3 mg/dL (0.2-1.0); CO2 26.8 mmol/L (21.0-32.0); Calcium 8.4 mg/dL (8.5-10.1); Chloride 104 mmol/L (98-107); Creatine Kinase 901 U/L (39-308); Glucose 67 mg/dL (74-106); Potassium 4.1 mmol/L (3.5-5.1); Sodium 138 mmol/L (136-145); Total Protein 6.7 g/dL (6.4-8.2)
[2021-09-15 08:00] VITALS: PULSE 84; TEMP 37.8
--- NOTE | 2021-09-15 09:14 | PDOC.CMIN ---
- If Service Date Differs Date of service: 09/15/21 Time of Service: 09:14 Care Management Initial Assess REASON FOR HOSPITALIZATION:: generalized weakness PAST MEDICAL HISTORY/PAST SURGICAL HISTORY:: All Active Problems. Elevated troponin (Acute). Elevated CPK (Acute). COVID (Acute) PREVIOUS FUNCTIONAL STATUS/SOCIAL/FAMILY SUPPORTS:: Geovanny lives alone in [place]. He has supportive friends/neighbors, including Janet, his DPOA. He has limited medical history, due to the lack of a primary care provider. CURRENT FUNCTIONAL STATUS:: Geovanny is currently isolated in the ICU due to his Covid diagnosis, therefore CM did not meet with him. Per report, Johana, Palliative Care, discussed his care with his DPOA, Janet, who stated that the plan would be for him to return home, into her care, and she is assisting him with obtaining a hospital bed and checks on him frequently. CM attempted to call Janet, and was not able to leave a voicemail. PT is recommending SNF, although Geovanny has not had a three night stay, therefore [facility] will not cover short term rehab. Per report, Geovanny and Janet are both disagreeable to SNF. CM sent a referral to [facility] for options counseling and assisted planning. CM will continue to follow. ADVANCE DIRECTIVES:: None on file. Has patient been provided with info about the portal/API?: No Did the patient sign up for the portal?: No CODE STATUS:: DNR/DNI (per DPOA) INSURANCE COVERAGE / FINANCIAL ISSUES:: MCR/ UMR CURRENT HOME/COMMUNITY SERVICES/EQUIPMENT:: No current services in the community. PRIMARY CARE PHYSICIAN:: None POTENTIAL DISCHARGE NEEDS:: Evaluations for further needs, follow up appointments. PATIENT/FAMILY EDUCATION NEEDS:: Review discharge instructions and limitations, discussion of self care needs including ask me three and goals of care. ANTICIPATED BARRIERS TO DISCHARGE:: Geovanny lives alone with dementia. TRANSPORTATION:: Via private vehicle by a friend. PLAN:: Anticipate Geovanny will return home when medically cleared. He will be transported via private vehicle by a friend. He will follow up with the online services manager PCP, and his discharge plan of care. CM will continue to follow.
--- NOTE | 2021-09-15 09:55 | PT.INIE ---
Date of service: 09/15/21 Time of Service: 09:55 PT Notes Visit Reasons: Generalized Weakness Physical Therapy Inpatient Initial Evaluation Date: 09/15/2021 Referring Doctor: Jean Pierre German MD PT Orders: PT CONSULT: Eval/Treat Precautions: Fall. Standard. Activity as tolerated. Patient Profile/Admitting Diagnosis: Patient is an 86-year-old male patient with pre-existing dementia who presented to the ED on 09/14/2021 due to having found on the ground by caregiver from an unwitnessed fall the previous day. Patient was evaluated by PT at the ED on 09/14/2021 and recommended placement in a SNF due to concerns for safety and high fall risk. Patient is diagnosed with COVID-19 infection, elevated CPK, and elevated troponin. PMHX: All Active Problems?(Updated 09/15/21 @ 09:55 by Jean Pierre German MD) Discharge planning issues (Acute) Elevated troponin (Acute) Elevated CPK (Acute) COVID (Acute) Social History/Home Situation: Unreliable historian. Per CM and ED notes, patient is temporarily in a lodge in [facility] scheduled to move into an apartment in [place]. is in a facility due to dementia. Equipment Owned/DME: Unknown at this time Subjective: Agreeable to being moved out of bed for this evaluation. Does not feel safe standing alone and wanted to be supported when he got up. felt weak and shaky. Requested to go back to bed so he could again rest. Objective: General Observation: Supine in bed. Mental Status: Disoriented as to person, place, time, and purpose. Able to follow single step commands with moderate to maximal cueing. Pain: None reported ROM: Right Upper Extremity: Shoulder Flexion allows about 80 degrees only. Shoulder abduction up to 70 degrees. Elbow flexion WFL. Wrist flexion WFL. Functional opening and closing of hand WFL. Left Upper Extremity: Shoulder Flexion allows about 90 degrees only. Shoulder abduction up to 80 degrees. Elbow flexion WFL. Wrist flexion WFL. Functional opening and closing of hand WFL. Right Lower Extremity: Hip flexion lacks the last 25% or AROM while seated at EOB. Hip abduction WFL. Knee flexion WFL. Ankle dorsiflexion to neutral only. Ankle plantarflexion WFL. Left Lower Extremity: Hip flexion lacks the last 25% or AROM while seated at EOB. Hip abduction WFL. Knee flexion WFL. Ankle dorsiflexion to neutral only. Ankle plantarflexion WFL. Strength: Right Upper Extremity: Shoulder flexors 3-/5. Shoulder abductors 3-/5. Elbow flexors 4-/5. Elbow extensors 4-/5. Television Actor strong. Left Upper Extremity: Shoulder flexors 3-/5. Shoulder abductors 3-/5. Elbow flexors 4-/5. Elbow extensors 4-/5. Television Actor strong. Right Lower Extremity: Hip flexors 3-/5. Hip abductors 3-/5. Knee flexors 4-/5. Knee extensors 4-/5. Ankle dorsiflexors 3-/5. Ankle plantarflexors 4-/5. Left Lower Extremity: Hip flexors 3-/5. Hip abductors 3-/5. Knee flexors 4-/5. Knee extensors 4-/5. Ankle dorsiflexors 3-/5. Ankle plantarflexors 4-/5. Bed Mobility/Transfers: Rolling minimal assist Supine to sit minimal assist to B LE Sit to supine minimal assist to B LE Sit to stand minimal assist Stand to sit minimal assist Bed to reclining chair minimal assist Reclining chair to bed minimal assist Gait: Instructed patient with level surface ambulation of 40-50 feet going around his bed three times requiring contact guard assist. Requires maximal cueing to stay close to walker and to manage it safely. Minimal shortness of breath. Minimal to moderate path deviation. Balance: Static Sitting: Good Dynamic Sitting: Good Static Standing: Fair Dynamic Standing: Fair Special Tests: Mobility Limitations Standardized Measure [facility]-PAC 6 clicks Basic Mobility Inpatient Short Form: Raw Score: 12 CMS Score: 69% deficit Informed Consent/Education: Patient was instructed in purpose of PT consult and plan of care. Agreeable to proceed with established PT POC to achieve personal goals. Assessment: Not able to thrive alone at home at this time, patient requires the supervision of another person 13/09 for safety. He is disoriented x 3. Able to follow simple commands with maximal cueing for safety. Risk for falls high. Patient presents with clinical signs and symptoms consistent with current/admitting diagnoses that have resulted to mobility limitations, gait instability, generalized weakness, and overall ADL decline as demonstrated by the following impairment level findings: 1. Decreased strength to B UE/LE major muscle groups 2. Impaired sitting/standing balance 3. Impaired activity tolerance 4. Limitation of joint range of motion in B shoulder and B hips 5. Shortness of breath 6. Fatigue Impairments are contributing to the following functional limitations: 1. Decline in bed mobility skills 2. Decline in transfer skills 3. Difficulty with ambulation without assistive device and physical assistance 4. Increased completion time for mobility ADL performance 5. Increased risk for falls 6. Difficulty with managing steps alone safely Patient is assessed as a 63465 moderate complexity based on the following: History: 86-year-old male with past medical history as indicated above Examination: Demonstrable impairment in strength, balance, and mobility level with underlying impairments and functional limitations as exhibited above as well as deficit score of 69% utilizing the [facility] Mobility Inpatient Short Form Presentation: Evolving Decision Makin moderate complexity Goals: Goals X1 week 1. Supine-Sit independent 2. Sit-Supine independent 3. Sit-Stand independent 4. Stand-Sit independent with FWW 5. Bed-Chair independent with FWW 6. Chair-Bed independent with FWW 7. Supervision gait on level surface with use of FWW for at least 200 feet without report of pain nor dyspnea 8. Good static and dynamic standing balance/tolerance Plan of Care/Treatment Plan: 1-2x/day, 7 days/week x 1 week. Plan of care has been reviewed with the SCHOOL BUS DRIVER/MECHANIC providing the service under Physical Therapy direction. Initiate Physical Therapy intervention for pain management as needed, strengthening, bed mobility, transfers, gait, stairs, balance training, and use of assistive device. THERA EX initiated with patient today: 1. Bilateral heel raises x 10 2. Partial knee bends x 10 3. Bilateral shoulder flexion x 10 while seated at EOB 4. BIlateral horizontal bad/add x 10 while seated at EOB DISCHARGE RECOMMENDATIONS: [] Home with no services [] [] Home with services [specify] [] Home with outpatient PT [] [X] SNF for continued rehabilitation. Patient will benefit from jail facility placement for continued skilled physical therapy services in order to progress mobility level, strength, and balance in preparation for a safe discharge to home. [] User Acceptance Tester Care [] [] SNF versus LTC based on ability to participate and progress [] TREATMENT CODE/TIME: 65036 x 20 minutes, 18933 x 15 minutes beginning at 9:55 AM. Thank you for the opportunity to participate in the care of this patient. Dona Turcios PT, DPT, CLT [facility] [place], [place]
--- NOTE | 2021-09-15 11:49 | PHA.REVIEW ---
Pharmacy Admission Review - Admission Clinical Review (Last Reviewed 09/15/21 @ 09:36 by Jean Pierre German MD) Discharge planning issues (Acute) Elevated troponin (Acute) Elevated CPK (Acute) COVID (Acute) No Known Allergies Allergy (Unverified 09/14/21 17:42) Resuscitation Status DNR/DNI Height 5 ft 6 in Weight 61.5 kg - Renal Dosing Renal Dosing: BUN 23 mg/dL (7-18) H 09/15/21 05:23 Creatinine 1.0 mg/dL (0.70-1.30) 09/15/21 05:23 Medications needing adjustments: N/A (crcl = 46, no med adjustments needed) - Anticoagulation Anticoagulation: Hgb 13.6 g/dL (13.5-17.5) 09/14/21 10:52 Hct 41.4 % (40.0-50.0) 09/14/21 10:52 Plt Count 105 10^3/uL (130-400) L 09/14/21 10:52 INR 1.1 (0.9-1.1) 09/14/21 10:52 Creatinine 1.0 mg/dL (0.70-1.30) 09/15/21 05:23 DVT Prophylaxis: Reviewed Medications: Enoxaparin (40 mg daily) - Opiate Usage Evaluate Pain Scale/Pains Meds: N/A - Relevant Labs Sodium 138 mmol/L (136-145) 09/15/21 05:23 Potassium 4.1 mmol/L (3.5-5.1) 09/15/21 05:23 Chloride 104 mmol/L (98-107) 09/15/21 05:23 Magnesium 2.0 mg/dL (1.8-2.4) 09/14/21 10:52 Electrolytes, C-Reactive P, ESR: Reviewed (elevated AST, ALT (not on any hepatoxic drugs)) - DM Control DM Control: Glucose 67 mg/dL (74-106) L 09/15/21 05:23 Insulin Dosing: N/A - Heart Failure/AL Heart Failure/AL: Troponin I 149 ng/L (<or=60) H* 09/14/21 22:00 EF%, RONNY's, B-Blockers, Diuretics: N/A - BP Control If elevated: N/A (no recorded BP) - Qtc Review If Elevated: Reviewed (QTc = 522. not on any QT prolonging meds) - IV to PO Switch IV Medications: N/A - Home Meds Home Med List reviewed: N/A (does not take any home meds) - Current meds Current Medication Order Review: Reviewed - Comments Comments/Follow Ups: watch QT, liver enzymes
--- NOTE | 2021-09-15 12:03 | PCNE_ITS ---
Date of service: 09/15/21 Time of Service: 10:30 History of Present Illness Narrative: Mr. Small is an 86 y/o M currently inpatient in ICU r/t weakness and COVID+ status; PMHx sig for dementia, no other known medical/health history; spoke to pt AIDEOA Janet and caregiver Daya, pt unable to engage, sleeping at time of visit Presently unavailable to speak via telephone, defer to Daya for initial conversation, preference to follow-up in person once patient is discharged. Report from Daya: Patient had been living with Sana in off-grid home on [address] [facility] in [place], around a year ago they noticed signs of decline including inability to care for home safely, no working electricity, etc. is now living at the [facility] related to dementia. They visit her weekly, providing transportation, she is now in a much better state, pt and do have a strained relationship. Patient is in process of being moved to an apartment at [facility], apartment available today, hospital bed being delivered this afternoon, plans for discharge home tomorrow apartment. Daya went to visit patient yesterday at temporary home he was staying in, doors were locked, found laying on the ground, presumed fall encouraged patient present to the emergency room for appropriate work-up. Previous fall was in July it was witnessed by Janet slipped on hardwood floor in home. Concerns of pt's wellbeing, ability to care for self and maintain independence, was needing additional assistance with car and financial assistance Janet is the DPOA and things are much improved with their involvement. Janet visits 2-3 times per week assisting patient with instrumental ADLs including laundry transportation to appointments and shopping. Daya visits intermittent with social visits encouraging activity and checking on home safety environment. Geovanny continues to drive, goes to [employer] on Tuesday for breakfast, concerns over driving, Daya will hold car keys at this t razia until appropriate work-up Patient has dementia, no known medications, potentially taking Prevagen [id number], does not engage in medical care. Would not be agreeable to SNF. Patient drinks gin around 2 drinks at 6 PM nightly, concerns over decreased appetite Patient's CODE STATUS is DNR?DNI, agreeable to completing paperwork at follow-up outpatient visit, preference for around 10 AM with Daya and Janet both present Spoke to staff: Patient initially would not engage in PT, unable to get out of bed however overnight was up all night moving around independently up and out of bed. PT assessment today recommend SNF or home health therapies upon discharge, appropriate for discharge today. Patient ate well, asleep now, staff feel cognitive status limits patient's ability to be independent; patient is COVID- positive, no respiratory symptoms noted. Assessment and Plan Assessment and plan (1) COVID: Status: Acute Assessment and plan: no acute s/sxs, found incidental (2) DNR (do not resuscitate): Assessment and plan: Janet NAVAS reports DNR/I status, to f/u and complete COLST (3) Driving safety issue: Assessment and plan: recommend no driving until appropriate evaluation will recommend [facility] OT driving assessment at future visits (4) Dementia: Status: Chronic Assessment and plan: pt has not engaged in medical care, no work-up available will continue to follow concerns over living independently, inability to perform daily activities, will f/u [facility] referral on discharge [facility] referral (5) Need for home health care: Status: Deleted Assessment and plan: [facility] referral on discharge per recommendation from PT (6) Weakness: Status: Acute Assessment and plan: continue PT suspect COVID involvement (7) History of fall: Assessment and plan: x2 falls in previous 2 mos, will continue to follow continue PT home safety assessment once settled in new home (8) Palliative care encounter: Status: Acute Assessment and plan: palliatve to continue to follow outpatient, f/u HV next 1-2 wks pending availability, Romaine to be present at visit for pt preference and comfort pt to be d/c'd home to new apartment in [facility] today, new hospital bed arriving today Review of Systems Constitutional Constitutional: Reports as per HPI Comments: pt asleep at time of visit PFSH All Active Problems (Updated 09/16/21 @ 00:08 by SRINIVAS MAX) Palliative care encounter (Acute) Weakness (Acute) Dementia (Chronic) Elevated CPK (Acute) COVID (Acute) Medical History DNR (do not resuscitate) History of fall Social History Smoking/Tobacco Use Status: Never Smoking risk assessment performed?: Yes Alcohol Intake: current Alcohol Intake frequency: 0-2 drinks per day Alcohol type: hard liquor Substance use type: does not use Details: Pt reports he drinks 1 glass of Gin a day Do you feel safe at home: Yes Do you feel safe in your relationship?: Yes Exam Narrative Exam Narrative: lying in bed asleep in ICU at time of visit, NAD Const General: comfortable and no acute distress Resp Effort & Inspection: normal respiratory effort Skin Other: scattered red, dried lesions predominately over L sided face Psych Other: asleep Results Last Vital Signs Temp 100.0 F H 09/15/21 08:00 Pulse 84 09/15/21 08:00 Resp 19 09/14/21 20:00 BP 167/86 H 09/14/21 22:01 Pulse Ox 96 09/14/21 23:30 Labs Result diagrams: 09/14/21 10:52 09/15/21 05:23 Labs: Laboratory Results - last 24 hr 09/14/21 09/14/21 09/14/21 10:52 10:52 10:52 WBC 7.11 RBC 4.53 Hgb 13.6 Hct 41.4 MCV 91 MCH 30.0 MCHC 32.9 RDW 15.1 H Plt Count 105 L MPV 12.3 H Immature Gran % 0.7 Neutrophils % 79.6 Lymphocytes % 6.5 Monocytes % 10.3 Eosinophils % 2.5 Basophils % 0.4 Nucleated RBC % 0.0 Absolute Neutrophils 5.66 Absolute Lymphocytes 0.46 L Absolute Monocytes 0.73 Absolute Eosinophils 0.18 Absolute Basophils 0.03 PT 11.5 H INR 1.1 Sodium 140 Potassium 4.0 Chloride 105 Carbon Dioxide 28.5 Anion Gap 6.5 BUN 24 H Creatinine 1.2 Estimated GFR/1.73 m2 57.54 Glucose 89 Calcium 9.0 Magnesium 2.0 Total Bilirubin 1.3 H AST 129 H ALT 125 H Alkaline Phosphatase 90 Creatine Kinase 632 H Troponin I 120 H* Total Protein 7.2 Albumin 3.6 TSH 2.56 Urine Color Urine Clarity Urine pH Ur Specific [place] Urine Protein Urine Ketones Urine Blood Urine Nitrite Urine Bilirubin Urine Urobilinogen Ur Leukocyte Esterase Urine RBC Urine WBC Ur Epithelial Cells Urine Crystals Urine Bacteria Urine Casts Urine Mucus Ur Culture Indicated? Urine Glucose Ethyl Alcohol < 3.0 COVID-19 Source SARS-CoV-2 (PCR) 09/14/21 09/14/21 09/14/21 14:13 14:24 15:00 WBC RBC Hgb Hct MCV MCH MCHC RDW Plt Count MPV Immature Gran % Neutrophils % Lymphocytes % Monocytes % Eosinophils % Basophils % Nucleated RBC % Absolute Neutrophils Absolute Lymphocytes Absolute Monocytes Absolute Eosinophils Absolute Basophils PT INR Sodium Potassium Chloride Carbon Dioxide Anion Gap BUN Creatinine Estimated GFR/1.73 m2 Glucose Calcium Magnesium Total Bilirubin AST ALT Alkaline Phosphatase Creatine Kinase Troponin I 130 H* Total Protein Albumin TSH Urine Color Yellow Urine Clarity Clear Urine pH 6.0 Ur Specific [place] >= 1.030 H Urine Protein 30 H Urine Ketones Trace H Urine Blood Small H Urine Nitrite Negative Urine Bilirubin Negative Urine Urobilinogen 1.0 H Ur Leukocyte Esterase Negative Urine RBC 3-5 H Urine WBC Negative Ur Epithelial Cells Rare Urine Crystals Negative Urine Bacteria Negative Urine Casts 0-2 Hyaline Urine Mucus Trace Ur Culture Indicated? No Urine Glucose Negative Ethyl Alcohol COVID-19 Source Nasal/Nares SARS-CoV-2 (PCR) POSITIVE A* 09/14/21 09/15/21 22:00 05:23 WBC RBC Hgb Hct MCV MCH MCHC RDW Plt Count MPV Immature Gran % Neutrophils % Lymphocytes % Monocytes % Eosinophils % Basophils % Nucleated RBC % Absolute Neutrophils Absolute Lymphocytes Absolute Monocytes Absolute Eosinophils Absolute Basophils PT INR Sodium 138 Potassium 4.1 Chloride 104 Carbon Dioxide 26.8 Anion Gap 7.2 BUN 23 H Creatinine 1.0 Estimated GFR/1.73 m2 >= 60.00 Glucose 67 L Calcium 8.4 L Magnesium Total Bilirubin 1.3 H AST 199 H ALT 179 H Alkaline Phosphatase 78 Creatine Kinase 901 H Troponin I 149 H* Total Protein 6.7 Albumin 3.2 L TSH Urine Color Urine Clarity Urine pH Ur Specific [place] Urine Protein Urine Ketones Urine Blood Urine Nitrite Urine Bilirubin Urine Urobilinogen Ur Leukocyte Esterase Urine RBC Urine WBC Ur Epithelial Cells Urine Crystals Urine Bacteria Urine Casts Urine Mucus Ur Culture Indicated? Urine Glucose Ethyl Alcohol COVID-19 Source SARS-CoV-2 (PCR)
[2021-09-15 13:53] VITALS: PULSE 84; RESP 18; TEMP 37.4; O2SAT 92
--- NOTE | 2021-09-15 14:48 | W.PM.DS.N ---
Date of service: 09/15/21 Time of Service: 14:49 DS: Diagnosis Discharge Diagnosis (1) COVID: Status: Acute (2) DNR (do not resuscitate): (3) Driving safety issue: Status: Acute (4) Dementia: Status: Chronic (5) Need for home health care: Status: Acute (6) Weakness: Status: Acute (7) History of fall: (8) Palliative care encounter: Status: Acute Discharge Plan Disposition Patient Disposition: HOME Condition: Stable Discharge Details Reason For Visit: Generalized Weakness, dementia, rhabdo Admit Date/Time: 09/14/21 17:59 Admit Provider: Jean Pierre German Attending Provider: Jean Pierre German Primary Care Provider: Unknown,Unknown Hospital Course Hospital Course: This is an 86 yo male with no known PMH; does not routinely seek medical care. He came to the ED after a caregiver that checks in on him found him on the ground after he did not answer the door.? He lives alone in a [facility] on [address]; the territory outside sales manager let the caregiver, Daya in.? He could not recall why he was on the ground but denied any pain or injury.? He has dementia and is not a good historian.? He has a DNR/DNI code status. W/U in the ED found him to be Covid positive.? He was not hypoxic or showing any signs of respiratory compromise.? WBC count normal.? Afebrile.? Troponin 120 > 130.? No EKG findings concerning for ACS.? No C/O chest pain. CPK 632. CXR w/o acute findings.? CT head w/o acute findings.? He was given a 1L NS bolus. PT attempted to walk him but was unable to get him up off the gurney.? During the night he frequently got up out of bed on his own volition. His CPK increased modestly to 901. His creatinine went from 1.2. to 1.0. His caregivers (one of which is his DPOA) are willing to take him home to his new residence (an apt. in [place]). Home health cannot be ordered at this time since he has yet to establish with a PCP (an appt has been made). Palliative was consulted and they spoke extensively with the caregivers. Appt has been made to establish care with a PCP Home Meds and New Rx's Prescriptions: No Action No Known Home Meds Discharge Instructions Additional Instructions: Encourage good oral hydration. Referrals: Westley Chaudhary DO [OSTEOPATHIC DOCTOR] - 09/29/21 10:15 am Activity:: Activity as Tolerated Equipment/Supplies:: No Equipment Needed Diet:: Resume usual diet Discharge Orders Discharge Orders: Discharge Order (Routine); Ordered 09/15/21 Ordered By: Jean Pierre German DS: Summary Time Spent with Patient providing and/or coordinating discharge services: Greater than 30 minutes Status at Discharge Functional status at discharge: uses cane/walker Overall status at discharge: patient is progressing back to baseline Mental Status: other (dementia) Speech and Movement: speech clear Mood: other (dementia) Affect: normal affect Exam Narrative Exam Narrative: Lying supine. on gurney. Const General: cooperative, no acute distress and frail appearing Nutritional Appearance: thin Orientation: awake Eyes General: appearance normal, both eyes and all related structures Sclera: sclerae normal Resp Effort & Inspection: normal respiratory effort Auscultation: clear to auscultation bilaterally Cardio Rate: regular rate Rhythm: regular rhythm Heart Sounds: S1 normal and S2 normal GI Inspection: normal to inspection Palpation: soft and nontender Skin General skin exam: other (scattered red, crusty lesions of scalp. ) Neuro General: no focal motor deficits Cranial Nerves: facial strength normal Extrem General: no pedal edema and no calf tenderness Psych Mental Status: other (dementia) Speech and Movement: speech clear Mood: other (dementia) Affect: normal affect DS: Data Vitals/I&O Vitals and I&O: Vital Signs Temperature 37.4 C 09/15/21 13:53 Temperature Source Temporal Artery Scan 09/15/21 13:53 Pulse 84 09/15/21 13:53 Pulse Rhythm Regular 09/15/21 08:00 Pulse 72 09/14/21 20:00 Respiratory Rate 18 09/15/21 13:53 Respiratory Effort 09/15/21 08:00 Respiratory Depth Normal 09/15/21 08:00 Respiratory Pattern Normal 09/15/21 08:00 Blood Pressure 167/86 H 09/14/21 22:01 Blood Pressure Mean 105 09/14/21 22:01 Blood Pressure Position Sitting 09/14/21 11:35 Pulse Oximetry 92 09/15/21 13:53 Oxygen Delivery Method Room Air 09/15/21 13:53 Oxygen Flow Rate 0 09/15/21 13:53 Pain Level 0 09/15/21 08:00 Intake & Output 09/14/21 09/15/21 09/15/21 23:59 11:59 23:59 Intake Total 1010 / 1010 240 / 240 Balance 1010 / 1010 240 / 240 Weight 61.5 kg Intake: IV 1010 / 1010 Oral 240 / 240 Other: Urine Color Yellow Urine Odor Strong Comment pateint is incontinet and used the restroom on himself and the bed, unable to figure out what the total volume would have been. Voiding Methods Incontinent Incontinent Data Completed and Pending Labs on day of discharge: Labs from last 24 hours 09/15/21 09/14/21 09/14/21 05:23 22:00 15:00 Sodium 138 Potassium 4.1 Chloride 104 Carbon Dioxide 26.8 Anion Gap 7.2 BUN 23 H Creatinine 1.0 Estimated GFR/1.73 m2 >= 60.00 Glucose 67 L Calcium 8.4 L Total Bilirubin 1.3 H AST 199 H ALT 179 H Alkaline Phosphatase 78 Creatine Kinase 901 H Troponin I 149 H* 130 H* Total Protein 6.7 Albumin 3.2 L Urine RBC Urine WBC Ur Epithelial Cells Urine Crystals Urine Bacteria Urine Casts Urine Mucus Ur Culture Indicated? SARS-CoV-2 (PCR) 09/14/21 09/14/21 14:24 14:13 Sodium Potassium Chloride Carbon Dioxide Anion Gap BUN Creatinine Estimated GFR/1.73 m2 Glucose Calcium Total Bilirubin AST ALT Alkaline Phosphatase Creatine Kinase Troponin I Total Protein Albumin Urine RBC 3-5 H Urine WBC Negative Ur Epithelial Cells Rare Urine Crystals Negative Urine Bacteria Negative Urine Casts 0-2 Hyaline Urine Mucus Trace Ur Culture Indicated? No SARS-CoV-2 (PCR) POSITIVE A* PFSH All Active Problems Palliative care encounter (Acute) Weakness (Acute) Need for home health care (Acute) Dementia (Chronic) Driving safety issue (Acute) Discharge planning issues (Acute) Elevated troponin (Acute) Elevated CPK (Acute) COVID (Acute) Medical History DNR (do not resuscitate) History of fall Social History Smoking/Tobacco Use Status: Never Smoking risk assessment performed?: Yes Alcohol Intake: current Alcohol Intake frequency: 0-2 drinks per day Alcohol type: hard liquor Substance use type: does not use Details: Pt reports he drinks 1 glass of Gin a day Do you feel safe at home: Yes Do you feel safe in your relationship?: Yes
--- NOTE | 2021-09-15 16:49 | CMDISCH_ITS ---
- If Service Date Differs Date of service: 09/15/21 Time of Service: 16:49 LACE Index Scoring Tool - Questions: Length of Stay (in days): 1 Acuity (Admit via E.D.?): Yes Comorbidities: Dementia E.D. Visits: 1 - Answers: Total Score: 8 Risk of Readmission: Low Risk Care Management Discharge Reason for Hospitalization: generalized weakness Discharge Plan: Geovanny returned home today with a follow up appointment scheduled at [facility]. It is recommended that he has services upon discharge, but will have to establish with a PCP in order to have services ordered. CM sent a referral to [facility] for options counseling and medical terminologist planning. His DPOA, Janet, drove him home via private vehicle. He will follow up with his PCP and discharge plan of care. Patient/Family Education Needs: Review discharge instructions and limitations, discussion of self care needs including ask me three.
[2021-09-15] MEDS: Acetaminophen 325 MG TAB 650 MG PO (17:14)
[2021-09-15 17:20] VITALS: TEMP 37.6
[2021-09-15 17:56] VITALS: BP 144/93; PULSE 68
--- NOTE | 2021-09-15 18:00 | INDS_ITS ---
Date of service: 10/15/21 PT Notes Visit Reasons: Generalized Weakness, dementia, rhabdo Physical Therapy Discharge Summary Date: 09/14/2021 Dates of Service: 09/14/2021 only This is a clinical summary of care provided for the duration of dates listed above. No charge was made in the completion of this documentation. Referring Doctor:? Jean Pierre German MD PT Orders: PT CONSULT: Eval/Treat Precautions: Fall. Standard. Activity as tolerated. Patient Profile/Admitting Diagnosis:? Patient is an 86-year-old male patient with pre-existing dementia who presented to the ED on 09/14/2021 due to having found on the ground by caregiver from an unwitnessed fall the previous day.? Patient was evaluated by PT at the ED on 09/14/2021 and recommended placement in a SNF due to concerns for safety and high fall risk.? Patient is diagnosed with COVID-19 infection,? elevated CPK, and elevated troponin. PMHX: All Active Problems?(Updated 09/15/21 @ 09:55 by Jean Pierre German MD) Discharge planning issues (Acute) Elevated troponin (Acute) Elevated CPK (Acute) COVID (Acute) Social History/Home Situation: Unreliable historian.? Per CM and ED notes,? patient is temporarily in a lodge in [facility] scheduled to move into an apartment in [place].? is in a facility due to dementia.? Equipment Owned/DME: Unknown at this time Subjective: NT. See most recent DATA ENTRY PROCESSOR notes. Objective: General Observation: NT. See most recent DATA ENTRY PROCESSOR notes. Mental Status: NT. See most recent DATA ENTRY PROCESSOR notes. Pain: NT. See most recent DATA ENTRY PROCESSOR notes. ROM: Right Upper Extremity: ? Shoulder Flexion allows about 80 degrees only. Shoulder abduction up to 70 degrees. Elbow flexion WFL. Wrist flexion WFL. Functional opening and closing of hand WFL. Left Upper Extremity:? Shoulder Flexion allows about 90 degrees only. Shoulder abduction up to 80 degrees. Elbow flexion WFL. Wrist flexion WFL. Functional opening and closing of hand WFL. Right Lower Extremity: Hip flexion lacks the last 25% or AROM while seated at EOB. Hip abduction WFL. Knee flexion WFL. Ankle dorsiflexion to neutral only. Ankle plantarflexion WFL. Left Lower Extremity: Hip flexion lacks the last 25% or AROM while seated at EOB. Hip abduction WFL. Knee flexion WFL. Ankle dorsiflexion to neutral only. Ankle plantarflexion WFL. Strength: Right Upper Extremity: Shoulder flexors 3-/5. Shoulder abductors 3-/5. Elbow flexors 4-/5. Elbow extensors 4-/5. Weapons Mechanic strong. Left Upper Extremity: Shoulder flexors 3-/5. Shoulder abductors 3-/5. Elbow flexors 4-/5. Elbow extensors 4-/5. Weapons Mechanic strong. Right Lower Extremity: Hip flexors 3-/5. Hip abductors 3-/5. Knee flexors 4-/5. Knee extensors 4-/5. Ankle dorsiflexors 3-/5. Ankle plantarflexors 4-/5. Left Lower Extremity: Hip flexors 3-/5. Hip abductors 3-/5. Knee flexors 4-/5. Knee extensors 4-/5. Ankle dorsiflexors 3-/5. Ankle plantarflexors 4-/5. Bed Mobility/Transfers: Rolling minimal assist Supine to sit minimal assist to B LE Sit to supine minimal assist to B LE Sit to stand minimal assist Stand to sit minimal assist Bed to reclining chair minimal assist Reclining chair to bed minimal assist Gait: Instructed patient with level surface ambulation of 40-50 feet going around his bed three times requiring contact guard assist. Requires maximal cueing to stay close to walker and to manage it safely.? Minimal shortness of breath.? Minimal to moderate path deviation. Balance: Static Sitting: Good Dynamic Sitting: Good Static Standing: Fair Dynamic Standing: Fair Assessment: Not able to thrive alone at home at this time,? patient requires the supervision of another person 13/09 for safety.? He is disoriented x 3.? Able to follow simple commands with maximal cueing for safety.? Risk for falls high.? Patient presents with clinical signs and symptoms consistent with current/admitting diagnoses that have resulted to mobility limitations, gait instability, generalized weakness, and overall ADL decline as demonstrated by the following impairment level findings: 1.? Decreased strength to B UE/LE major muscle groups 2.? Impaired sitting/standing balance 3.? Impaired activity tolerance 4.? Limitation of joint range of motion in B shoulder and B hips 5.? Shortness of breath 6.? Fatigue Impairments are contributing to the following functional limitations: 1.? Decline in bed mobility skills 2.? Decline in transfer skills 3.? Difficulty with ambulation without assistive device and physical assistance 4.? Increased completion time for mobility ADL performance 5.? Increased risk for falls 6.? Difficulty with managing steps alone safely Goals: Goals X1 week 1. Supine-Sit independent NOT MET 2. Sit-Supine independent NOT MET 3. Sit-Stand independent NOT MET 4. Stand-Sit independent with FWW NOT MET 5. Bed-Chair independent with FWW NOT MET 6. Chair-Bed independent with FWW NOT MET 7. Supervision gait on level surface with use of FWW for at least 200 feet without report of pain nor dyspnea NOT MET 8. Good static and dynamic standing balance/tolerance NOT MET DISCHARGE RECOMMENDATIONS: [] ? Home with no services [] [] ? Home with services [specify] [] ? Home with outpatient PT [] [X] ? SNF for continued rehabilitation.? Patient will benefit from snf facility placement for continued skilled physical therapy services in order to progress mobility level, strength, and balance in preparation for a safe discharge to home. [] ? Intermediate Care [] [] ? SNF versus LTC based on ability to participate and progress [] TREATMENT CODE/TIME: [place] Thank you for the opportunity to participate in the care of this patient. Dona Turcios PT, DPT, CLT [facility] [place], [place]
== END 2021-09-15 18:15 | disposition home or self-care (01) ==
LOC: ER 17:51 → ICU 20:22
PROVIDERS: Physician Assistant; Admitting Provider Family Medicine; Emergency Provider Registered Nurse Emergency; Visit Provider Family Medicine
DX: M62.82 Rhabdomyolysis (principal); R41.82 Altered mental status, unspecified; U07.1 COVID-19; I45.10 Unspecified right bundle-branch block; I25.2 Old myocardial infarction; R53.1 Weakness; R74.8 Abnormal levels of other serum enzymes; F03.90 Unspecified dementia, unspecified severity, without behavioral disturbance, psychotic disturbance, mood disturbance, and anxiety; Z66 Do not resuscitate; W19.XXXA Unspecified fall, initial encounter
CPT/HCPCS: 36415; 80053; 82550; 87635; 93005; 96360; 96372; 97162; 97530; 99284; 99285; J1650; 70450; 71046; 80320; 81003; 81015; 83735; 84443; 84484; 85025; 85610; 93010; 99217; 99219; G0378

== ENCOUNTER 2022-04-19 18:03 | Outpatient (REF) | payer MEDICARE, OTHER, SELFPAY ==
[2022-04-19 16:38] LABS: Bilirubin Negative (Negative); Blood Negative (Negative); Clarity Clear (Clear); Glucose Negative (Negative); Ketones Negative (Negative); Leukocyte Esterase Negative (Negative); Nitrite Negative (Negative); Specific Gravity 1.015 (1.005-1.025)
== END 2022-04-19 18:04 | disposition home or self-care (01) ==
LOC: NCHCN 18:03
PROVIDERS: PCP Family Medicine; Visit Provider Nurse Practitioner Family
DX: R45.1 Restlessness and agitation (principal); R82.998 Other abnormal findings in urine
CPT/HCPCS: 81003

== ENCOUNTER 2022-04-26 16:23 | Outpatient (REF) | payer MEDICARE, OTHER, SELFPAY ==
[2022-04-26 17:00] LABS: Bilirubin Negative (Negative); Blood Negative (Negative); Clarity Clear (Clear); Glucose Negative (Negative); Ketones Negative (Negative); Leukocyte Esterase Negative (Negative); Nitrite Negative (Negative)
[2022-04-26 17:02] LABS: COMMENT (LAB VIEW ONLY) 41.66 mg/dL; Microalb ug/mg Crea 15.8 ug/mg Cr
== END 2022-04-26 16:24 | disposition home or self-care (01) ==
LOC: NCHCN 16:23
PROVIDERS: PCP Family Medicine; Visit Provider Nurse Practitioner Family
DX: R45.1 Restlessness and agitation (principal); R82.998 Other abnormal findings in urine
CPT/HCPCS: 81003; 82043; 82570

== ENCOUNTER 2022-04-30 16:25 | Outpatient (REF) | payer MEDICARE, OTHER, SELFPAY ==
[2022-04-30 16:07] LABS: Abs Immature Grans 0.06 10^3/uL (0.0-0.06); Absolute Basophil Count 0.04 10^3/uL (0.0-0.2); Absolute Eosinophil Count 0.23 10^3/uL (0.0-0.7); Absolute Lymphocyte Count 2.05 10^3/uL (1.2-3.4); Absolute Monocyte Count 0.69 10^3/uL (0.1-0.8); Absolute Neutrophil Count 4.54 10^3/uL (1.2-6.7); Basophils % 0.5; HCT 40.6 % (40.0-50.0); HGB 13.1 g/dL (13.5-17.5); Immature Grans % 0.8; Lymphocytes % 26.9; MCH 28.8 pg (27.0-33.0); MCHC 32.3 % (32.0-36.0); MCV 89 fL (80-95); MPV 11.8 fL (8.0-11.0); Monocytes % 9.1; Neutrophils % 59.7; Platelet Count 140 10^3/uL (130-400); RBC 4.55 10^6/uL (4.36-5.78); RDW 15.5 % (11.8-14.1); RDW-SD 50.5 fL; WBC 7.61 10^3/uL (4.4-10.8)
[2022-04-30 16:58] LABS: ALT 31 U/L (16-63); AST 23 U/L (15-37); Albumin 3.5 g/dL (3.4-5.0); Alkaline Phosphatase 90 U/L (46-116); Anion Gap 6.5 mmol/L (3-11); BUN 17 mg/dL (7-18); Bilirubin, Total 0.4 mg/dL (0.2-1.0); CO2 29.5 mmol/L (21.0-32.0); CREATININE 0.9 mg/dL (0.70-1.30); Calcium 9.1 mg/dL (8.5-10.1); Chloride 107 mmol/L (98-107); Estimated GFR 83.18 (mL/min/1.73m2); Glucose 101 mg/dL (74-106); Potassium 5.4 mmol/L (3.5-5.1); Sodium 143 mmol/L (136-145); Total Protein 6.8 g/dL (6.4-8.2)
== END 2022-04-30 16:26 | disposition home or self-care (01) ==
LOC: NCHCN 16:25
PROVIDERS: PCP Family Medicine; Visit Provider Nurse Practitioner Family
DX: R82.90 Unspecified abnormal findings in urine (principal); R45.1 Restlessness and agitation
CPT/HCPCS: 80053; 85025

== ENCOUNTER 2022-08-01 13:32 | Outpatient (REF) | payer MEDICARE, OTHER, SELFPAY ==
[2022-08-01 14:49] LABS: Abs Immature Grans 0.05 10^3/uL (0.0-0.06); Absolute Basophil Count 0.04 10^3/uL (0.0-0.2); Absolute Eosinophil Count 0.15 10^3/uL (0.0-0.7); Absolute Lymphocyte Count 1.44 10^3/uL (1.2-3.4); Basophils % 0.6; Eosinophils % 2.4; HCT 40.2 % (40.0-50.0); HGB 13.1 g/dL (13.5-17.5); Immature Grans % 0.8; Lymphocytes % 23.3; MCH 29.1 pg (27.0-33.0); MCHC 32.6 % (32.0-36.0); MCV 89 fL (80-95); MPV 11.9 fL (8.0-11.0); Monocytes % 8.1; Neutrophils % 64.8; Platelet Count 124 10^3/uL (130-400); RDW 15.3 % (11.8-14.1); RDW-SD 50.5 fL; WBC 6.18 10^3/uL (4.4-10.8)
[2022-08-01 14:55] LABS: Anion Gap 3.8 mmol/L (3-11); BUN 19 mg/dL (7-18); CO2 30.2 mmol/L (21.0-32.0); CREATININE 0.9 mg/dL (0.70-1.30); Chloride 106 mmol/L (98-107); Estimated GFR 83.18 (mL/min/1.73m2); Glucose 81 mg/dL (74-106); Potassium 5.5 mmol/L (3.5-5.1); Sodium 140 mmol/L (136-145)
== END 2022-08-01 13:33 | disposition home or self-care (01) ==
LOC: NCHCN 13:32
PROVIDERS: PCP Family Medicine; Visit Provider Nurse Practitioner Family
DX: E87.5 Hyperkalemia (principal); D64.9 Anemia, unspecified; R45.1 Restlessness and agitation; F32.9 Major depressive disorder, single episode, unspecified; F03.90 Unspecified dementia, unspecified severity, without behavioral disturbance, psychotic disturbance, mood disturbance, and anxiety; R53.1 Weakness
CPT/HCPCS: 80048; 82043; 82570; 85025

== ENCOUNTER 2022-08-18 10:15 | Outpatient (REF) | payer MEDICARE, OTHER, SELFPAY ==
[2022-08-18 10:13] LABS: BUN 15 mg/dL (7-18); CREATININE 0.9 mg/dL (0.70-1.30); Chloride 108 mmol/L (98-107); Estimated GFR 83.18 (mL/min/1.73m2); Glucose 87 mg/dL (74-106); Potassium 4.3 mmol/L (3.5-5.1); Sodium 144 mmol/L (136-145)
[2022-08-18 10:23] LABS: Absolute Basophil Count 0.06 10^3/uL (0.0-0.2); Absolute Eosinophil Count 0.23 10^3/uL (0.0-0.7); Absolute Lymphocyte Count 1.66 10^3/uL (1.2-3.4); Absolute Monocyte Count 0.43 10^3/uL (0.1-0.8); Basophils % 0.9; Eosinophils % 3.6; HCT 40.1 % (40.0-50.0); HGB 13.2 g/dL (13.5-17.5); Immature Grans % 1.6; MCH 28.9 pg (27.0-33.0); MCHC 32.9 % (32.0-36.0); MCV 88 fL (80-95); MPV 12.1 fL (8.0-11.0); Monocytes % 6.7; Neutrophils % 61.2; Platelet Count 125 10^3/uL (130-400); RBC 4.57 10^6/uL (4.36-5.78); RDW 15.2 % (11.8-14.1); RDW-SD 48.7 fL; WBC 6.38 10^3/uL (4.4-10.8)
== END 2022-08-18 10:16 | disposition home or self-care (01) ==
LOC: NCHCN 10:15
PROVIDERS: PCP Family Medicine; Visit Provider Nurse Practitioner Family
DX: D64.9 Anemia, unspecified (principal); E87.5 Hyperkalemia; R74.8 Abnormal levels of other serum enzymes
CPT/HCPCS: 80048; 85025

== ENCOUNTER 2022-09-06 13:28 | Outpatient (REF) | payer MEDICARE, SELFPAY ==
[2022-09-06 12:11] LABS: Abs Immature Grans 0.09 10^3/uL (0.0-0.06); Absolute Basophil Count 0.05 10^3/uL (0.0-0.2); Absolute Eosinophil Count 0.33 10^3/uL (0.0-0.7); Absolute Lymphocyte Count 1.75 10^3/uL (1.2-3.4); Absolute Neutrophil Count 6.08 10^3/uL (1.2-6.7); Basophils % 0.6; Eosinophils % 3.7; HGB 12.8 g/dL (13.5-17.5); Lymphocytes % 19.4; MCH 29.1 pg (27.0-33.0); MCHC 32.8 % (32.0-36.0); MCV 89 fL (80-95); MPV 12.9 fL (8.0-11.0); Monocytes % 7.8; Neutrophils % 67.5; Platelet Count 103 10^3/uL (130-400); RDW 15.9 % (11.8-14.1); RDW-SD 51.9 fL
[2022-09-06 13:32] LABS: Bilirubin Small (Negative); Blood Negative (Negative); Clarity Clear (Clear); Glucose Negative (Negative); Ketones Trace mg/dL (Negative); Leukocyte Esterase Negative (Negative); Nitrite Negative (Negative); Specific Gravity 1.025 (1.005-1.025); Urobilinogen 0.2 mg/dL (Up to 0.2)
[2022-09-06 13:46] LABS: COMMENT (LAB VIEW ONLY) 177.76 mg/dL
[2022-09-06 13:54] LABS: RBC 0-2 HPF (0-2); WBC 0-2 HPF (0-5)
[2022-09-06 13:55] LABS: Bacteria Negative HPF (Negative); C & S Indicated? No; Casts Negative LPF (Negative); Crystals Negative HPF (Negative); Epithelial Cells Rare HPF (Negative); Mucus Trace (Negative)
[2022-09-06 15:12] LABS: ALT 118 U/L (16-63); AST 98 U/L (15-37); Albumin 3.5 g/dL (3.4-5.0); Alkaline Phosphatase 93 U/L (46-116); Anion Gap 12.1 mmol/L (3-11); BUN 28 mg/dL (7-18); Bilirubin, Total 0.8 mg/dL (0.2-1.0); CO2 23.9 mmol/L (21.0-32.0); CREATININE 1.3 mg/dL (0.70-1.30); Calcium 8.8 mg/dL (8.5-10.1); Chloride 106 mmol/L (98-107); Glucose 123 mg/dL (74-106); Sodium 142 mmol/L (136-145); TSH (W/Ref FT4) 3.64 uIU/mL (0.36-3.74); Total Protein 6.6 g/dL (6.4-8.2)
== END 2022-09-06 13:29 | disposition home or self-care (01) ==
LOC: NCHCN 13:28
PROVIDERS: PCP Nurse Practitioner Family; Visit Provider Nurse Practitioner Family
DX: E87.5 Hyperkalemia (principal); D64.9 Anemia, unspecified; F32.A Depression, unspecified; R45.1 Restlessness and agitation; R26.81 Unsteadiness on feet; R53.1 Weakness; F03.90 Unspecified dementia, unspecified severity, without behavioral disturbance, psychotic disturbance, mood disturbance, and anxiety
CPT/HCPCS: 80053; 81003; 81015; 82043; 82570; 84443; 85025